=== PATIENT | male | born 1995 | race Caucasian/White ===

== ENCOUNTER 2025-02-25 11:05 | Outpatient (AMB) | payer OTHER, SELFPAY ==
--- NOTE | 2025-02-25 12:28 | AM.OFFWIN_ITS ---
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 - The injury occurred approximately two hours prior to the visit when the patient's left hand was compressed between a tire and a control arm. - The patient reports numbness and tingl ing in the left hand, particularly in the first two fingers. - Has pain with movement. - The patient is right-handed. - He denies wrist pain, arm pain, or ble eding. Physical Exam General: Cooperative, healthy appearing, comfortable, no acute distress and well developed Orientation: Patient oriented x3 Respiratory: Normal respiratory effort and able to speak in complete sentences. Clear to auscultation bilaterally Cardiovascular: Regular rate and rhythm. Normal S1 and S2 Skin: Bruising noted on the left hand and swelling. Neuro: Sensation intact. Extremities: Swelling noted to the left hand. TTP of the left scaphoid, base of the thumb at the MCP, web space of the left thumb and 2nd digit. TTP of the left metacarpal on the 2nd. FROM of the left digits on the left hand. Hand director of diversity and inclusion is intact. Patient was informed and verbally consented to the use of an ambient scribe for clinic note documentation during this visit. [facility] Social History Patient Tobacco Use Status: Never used Tobacco Review of Systems Const All systems reviewed & are unremarkable except as noted in HPI and below Physical Exam Vital Signs: Last Vital Signs Temp 97.8 F 02/25/25 12:30 Pulse 50 02/25/25 12:30 BP 110/70 02/25/25 12:30 Pulse Ox 97 02/25/25 12:30 BMI result Body Mass Index 27.5 Results Reviewed Results Reviewed: reviewed the x-ray in the office Assessment & Plan Assessment & Plan (1) Crush injury of hand: Code(s): S67.20XA - Crushing injury of unspecified hand, initial encounter Qualifiers: Encounter type: initial encounter Laterality: left Qualified Code(s): S67.22XA - Crushing injury of left hand, initial encounter Plan Most likely fracture vs contusion vs abrasion Plan - Obtain an x-ray of the hand to assess for fractures or other injuries. - Rest, ice and elevation - tylenol or motrin as needed for pain. - Apply a splint to the hand regardless of x-ray findings due to the location of pain. - Refer to a hand specialist for further evaluation and management. - Consider follow-up imaging such as a CT scan if initial x-rays are inconclusive. Orders: Orders XR hand LT min 3V Today S67.22XA - Crushing injury of left hand, initial encounter Referrals Orthopedics Referral S67.20XA - Crushing injury of unspecified hand, initial encounter Coding Level of Care Code Est Pt Level 4 (89391) Diagnoses Crushing injury of left hand, initial encounter S67.22XA Encounter type: initial encounter Laterality: left
[2025-02-25 12:30] VITALS: BP 110/70; PULSE 50; TEMP 36.6; O2SAT 97; BMI 27.5
== END 2025-02-25 13:57 | disposition home or self-care (01) ==
PROVIDERS: PCP Internal Medicine; Visit Provider Physician Assistant Medical
DX: S67.22XA Crushing injury of left hand, initial encounter (principal)

== ENCOUNTER 2025-02-25 11:05 | Outpatient (REF) | payer OTHER, SELFPAY ==
--- NOTE | ~2025-02-25 | XR_ITS ---
EXAMINATION: XR HAND, LEFT CLINICAL INFORMATION: S67.22XA - Crushing injury of left hand, initial encounter COMPARISON: None available. TECHNIQUE: PA, lateral, and oblique views of the left hand. FINDINGS: The bones and soft tissues are normal. No fracture. Alignment is anatomic. Joint spaces are maintained. No erosions or soft tissue calcifications. XR/XR hand LT min 3V IMPRESSION: Normal left hand. Electronically signed by: Caden Garza MD 02/25/2025 01:25 PM EDT
== END 2025-02-25 11:06 | disposition home or self-care (01) ==
LOC: HO.HMGCX 11:05
PROVIDERS: PCP Internal Medicine; Visit Provider Physician Assistant Medical
DX: S67.22XA Crushing injury of left hand, initial encounter (principal); W23.0XXA Caught, crushed, jammed, or pinched between moving objects, initial encounter
CPT/HCPCS: 73130; 99212

== ENCOUNTER → 2025-02-25 13:08 | Outpatient (BNV) | payer OTHER, SELFPAY | PROVIDERS: PCP Internal Medicine; Visit Provider Radiology Diagnostic Radiology | DX: S67.22XA Crushing injury of left hand, initial encounter (principal); Z04.2 Encounter for examination and observation following work accident | CPT/HCPCS: 73130 ==

== ENCOUNTER 2025-04-14 13:51 | Outpatient (AMB) | payer OTHER, SELFPAY ==
--- NOTE | 2025-04-14 14:09 | A.OFFVIS_ITS ---
Intake Visit Reasons: Vasectomy Consult Intake Note: patient presents today for: vasectomy consult urology medications: none blood thinners: none kids- 2 Private Investigator Surveillance Required: No Accompanied by: Spouse Allergies No Known Allergies Allergy (Verified 04/14/25 15:53) Medication List - Last Reconciled 04/14/25 by PHI Garcia No Known Home Meds HPI Comments Details: Ntiin is a very pleasant 29-year-old male patient of Dr. Ed Cook. He presents to the office today for vasectomy evaluation. Vasectomy evaluation The patient presents for vasectomy consultation.? He is currently He has fathered 2 children, with a single partner? 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 The vasectomy may be complicated due to a history of no complicating issues. Patient education has been provided via AUA video, via printed information, risks of failure, recovery time, bruising and potential pain syndrome have been stressed Discussion today focused on the presence of vasectomy and the risks, benefits and alternatives that are available. Vasectomy as intended as a permanent form of control. Printed information and literature was provided to the patient. Overall there is a one in 2500 failure rate. This can occur at any time after vasectomy. Risks were discussed highlighting hematoma, spermatocele, epididymal congestion, development of sperm antibodies, and development of chronic pain estimated between 1-5%. The procedure was reviewed in detail. Anatomical diagrams of the male genitalia were used to explain the location of the vas deferens. The vas deferens will be transected, the proximal end will be cauterized, a metal clip would be applied to separate the 2 vas deferens ends. It was explained the procedure will be done in the office and takes approximately 10-15 minutes. Less common problems that arise with vasectomy include hematoma, bleeding, allergic reaction to anesthetic, epididymal infection, epididymal congestion, scrotal discomfort, spermatic leak, spermatic granuloma and the possibility of antisperm antibodies. He understands these risks and wishes to proceed. Consent was signed at the office today. He also understands that it takes 12 weeks for sperm to fully clear the system. He will need to provide a semen sample at 12 weeks and if this is not clear a 2nd sample at 16 weeks. Medical clearance to stop using protection will only be provided if he satisfies published criteria for sperm clearance. PFS Social History Patient Tobacco Use Status: Never used Tobacco Review of Systems Const All systems reviewed & are unremarkable except as noted in HPI and below Physical Exam Const General: cooperative, comfortable, no acute distress, well developed, alert and awake Orientation/consciousness: patient oriented x3 HEENT Head: Yes normal to inspection, Yes normocephalic and Yes atraumatic Ears: hearing grossly normal bilaterally Eyes General: appearance normal, both eyes and all related structures Neck Neck: Yes normal visual inspection and Yes trachea midline Chest Chest palpation & inspection: normal inspection of the chest Resp Effort & Inspection: normal respiratory effort and able to speak in complete sentences Cardio Rate: regular rate GI Inspection: Yes normal to inspection General: Yes no CVA tenderness Male General Exam: Yes normal external exam Penis: normal penis Meatus: meatus normal Scrotum: scrotum normal Testes: Testes normal Back/Spine/Pelvis Back: no CVA tenderness Skin General skin exam: no rashes or lesions noted Neuro General: patient oriented x3 Extrem General: Yes normal to inspection Psych Appearance: grossly normal and well kempt Mental Status: mental status grossly normal Speech and movement: Normal speech and movement present and Clear speech present Affect: normal affect Attitude: cooperative Thought process: Normal thought process present Thought content: Normal thought content present Assessment & Plan Assessment & Plan (1) Vasectomy evaluation: Code(s): Z30.09 - Encounter for other general counseling and advice on contraception Category: Medical (2) Anxiety about health: Code(s): R45.89 - Other symptoms and signs involving emotional state Category: Medical Plan Vasectomy was discussed in detail; risks and benefits; as noted above All questions were answered Prescriptions provided; we discussed importance of bringing medication to office day of procedure We discussed semen analysis in office verses fellows kit. Consent was obtained. Will schedule for vasectomy. Follow-up per doctor's orders; or sooner with any issues, concerns, and or questions. Medications: New diazepam (Valium) Bringing medication to office day of procedure 2 mg PO DAILY 2 tabs 0RF anxiety 1 day R45.89 - Other symptoms and signs involving emotional state tramadol Bringing medication to office day of procedure 50 mg PO Q8H PRN 9 tabs 0RF pain 3 days N43.3 - Hydrocele, unspecified Patient Instructions: The patient had an opportunity to ask questions regarding the treatment plan. All questions were answered. Physical exam, labs, and imaging were discussed and reviewed in detail. As well as risks, benefits, and discussion of treatment choices. No major barriers to understanding were identified. The patient expressed understanding and agreement with the above treatment plan. The patient was made aware they should contact our office by phone for worsening of their current condition, the appearance of new symptoms, or with any questions or concerns. Compliance is encouraged with any medications and follow up testing that is ordered. It is a privilege to be allowed the opportunity to participate in? your urological care.? Again, if you have any questions or concerns If you have any questions or concerns please do not hesitate to contact me. The office is [phone]. This note is constructed using voice recognition software. While every effort has been made to ensure accuracy accounting officer errors may have been included. Yours sincerely, PHI Garcia Coding Level of Care Code New Pt Level 4 (23644) Diagnoses Vasectomy evaluation Z30.09 Anxiety about health R45.89
== END 2025-04-14 14:57 | disposition home or self-care (01) ==
LOC: HO.HUSH 13:52
PROVIDERS: PCP Internal Medicine; Visit Provider Nurse Practitioner Family
DX: Z30.09 Encounter for other general counseling and advice on contraception (principal); R45.89 Other symptoms and signs involving emotional state
CPT/HCPCS: 99204

== ENCOUNTER 2025-04-15 14:50 | Outpatient (AMB) | payer OTHER, SELFPAY ==
--- NOTE | 2025-04-15 15:02 | A.OFFVIS_ITS ---
Intake Visit Reasons: VASECTOMY Intake Note: patient presents today for: vasectomy urology medications: none blood thinners: none kids- 2 Continuous Improvement Black Belt Required: No Accompanied by: Spouse Allergies No Known Allergies Allergy (Verified 04/15/25 15:03) [facility] Social History Patient Tobacco Use Status: Never used Tobacco Office Procedures Vasectomy 58869 - Vasectomy Office Meds lidocaine (PF) 10 mg/mL (1 %) injection solution Performing Provider: Rich Baltazar MD [facility] Administered by: Aileen Chase RN on 04/15/25 15:13 Dose Route Admin Location Dispensed Lot Number Expiration Date NDC Director Translational 2 mL Infiltration 10 mL Total Dispensed Waste 10 mL 0 % Assessment & Plan Assessment & Plan Orders: Orders AMB Vasectomy Today R45.89 - Other symptoms and signs involving emotional state Coding CPT Codes Office Procedure - CPT: 28082 - Vasectomy ([id number])
== END 2025-04-15 15:59 | disposition home or self-care (01) ==
LOC: HO.HUSH 14:51
PROVIDERS: PCP Internal Medicine; Visit Provider Urology
DX: Z30.2 Encounter for sterilization (principal); R45.89 Other symptoms and signs involving emotional state
CPT/HCPCS: 55250

== ENCOUNTER → 2025-04-15 14:50 | Outpatient (BNVA) | payer OTHER, SELFPAY | PROVIDERS: PCP Internal Medicine; Visit Provider Urology | DX: Z30.2 Encounter for sterilization (principal); R45.89 Other symptoms and signs involving emotional state | CPT/HCPCS: 55250; J2003 ==

== ENCOUNTER 2025-04-22 13:15 | Outpatient (AMB) | payer OTHER, SELFPAY ==
--- NOTE | 2025-04-22 13:20 | A.OFFVIS_ITS ---
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 Ed Cook. He presents to the office today for - anxiety about health Has concerns about swelling post vasectomy Area reviewed Minimal swelling. Vasectomy evaluation The patient presents for vasectomy consultation.? He is currently He has fathered 2 children, with a single partner? 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 [employer] Social History Patient Tobacco Use Status: Never used Tobacco Review of Systems Const Denies chills and Denies fever(s) Card Reports no additional complaints and Denies syncope Resp Denies cough GI Denies abdominal pain and Denies heartburn Reports as per HPI and Denies change in libido Neuro Denies syncope Psych Denies change in libido Endo Denies change in libido Physical Exam Const General: cooperative, healthy appearing, comfortable and no acute distress Orientation/consciousness: patient oriented x3 HEENT Face and sinus: Yes normal facial exam Mouth: moist mucous membranes Neck Neck: Yes normal visual inspection, Yes full ROM and Yes trachea midline Chest Chest palpation & inspection: normal inspection of the chest Resp Effort & Inspection: normal respiratory effort, able to speak in complete sentences and no respiratory distress GI Inspection: Yes normal to inspection Back/Spine/Pelvis Cervical Spine: normal cervical lordosis Thoracic/Lumbar Spine: thoracic and lumbar spine normal to inspection Skin General skin exam: no rashes or lesions noted Neuro General: patient oriented x3, gait normal, tone normal and moves all extremities Extrem General: Yes normal to inspection and Yes capillary refill normal Assessment & Plan Assessment & Plan (1) Incisional pain: Code(s): L76.82 - Other postprocedural complications of skin and subcutaneous tissue Category: Medical Plan Keep follow-up Patient Instructions: This note is constructed using voice recognition software. While every effort has been made to ensure accuracy compositor apprentice errors may have been included. Imaging studies, laboratory and physical exam results were discussed and reviewed in detail. No major barriers to patient understanding were identified. An opportunity to ask questions regarding the treatment plan was provided. All questions were answered. The patient expressed understanding and agreement with the above treatment plan. The patient is aware they should contact our office by phone for worsening of their current condition or the appearance of new urologic symptoms. Compliance is encouraged with any medications and followup testing that is ordered. It is a privilege to participate in the urologic care of your patient. If you have any questions or concerns regarding treatment for the above conditions, or other urologic issues, please do not hesitate to contact me. The office telephone contact is [phone]. Sincerely, Dr Rich Baltazar MD, [facility] - Urology Compassionate Specialist Care for the Genitourinary System Coding Level of Care Code Global (31857) Diagnoses Incisional pain L76.82
== END 2025-04-22 13:49 | disposition home or self-care (01) ==
LOC: HO.HUSH 13:15
PROVIDERS: PCP Internal Medicine; Visit Provider Urology
DX: L76.82 Other postprocedural complications of skin and subcutaneous tissue (principal)
CPT/HCPCS: 99024

== ENCOUNTER 2025-06-13 14:02 | Outpatient (AMB) | payer OTHER, SELFPAY ==
--- NOTE | 2025-06-13 14:15 | A.OFFPC_ITS ---
Vital Signs 06/13/25 14:16 Height 6 ft 2 in Weight 223 lb 4 oz BMI 28.7 BP 122/82 Blood Pressure Location Rt brachial Position Sitting Respiration 14 Pulse 61 Pulse Source Pulse Oximeter Temp 98.1 F Temp Source Oral Pulse Oximetry (%) 97 Oxygen Delivery Method Room Air Intake Visit Reasons: CPE Allergies No Known Allergies Allergy (Verified 06/13/25 14:18) Tobacco use date assessed: 06/13/25 Dental Screening Dental Screen Date: 06/13/25 Did you have a dental visit in the last 12 months?: No Did you have a dental problem in the last 6 months where you did not have access to dental care?: No Was dental information given to patient?: Patient has dentist HPI HPI Comments History of Present Illness Details The patient is a 29 year old male with past medical history of salivary gland tumor 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 No follow up was recommended. Seen in urgent care in January for injury to hand. Was seen by orthopedics-had MRI there was fracture. He had to soft splint it for some time. Feeling fairly good. Following with urology -s/p vasectomy Mar. Follow up in Jun. for testing Dental UTD Tdap today Received 2024 flu ROS CONSTITUTIONAL: Denies weight loss, fever and chills. HEENT: Denies changes in vision and hearing. RESPIRATORY: Denies SOB and cough. CV: Denies palpitations and CP GI: Denies abdominal pain, nausea, vomiting and diarrhea. : Denies dysuria and urinary frequency. MSK: Denies new myalgia and joint pain. SKIN: Denies rash and pruritus. NEUROLOGICAL: Denies headache PSYCHIATRIC: Denies recent changes in mood. PHYSICAL EXAM: GENERAL: Alert and oriented x 3. NAD EYES: EOMI. Anicteric. HENT: Moist mucous membranes. No scleral icterus. No cervical lymphadenopathy. LUNGS: Clear to auscultation bilaterally. CARDIOVASCULAR: Regular rate and rhythm. No murmur. No JVD. ABDOMEN: Soft, non-tender +bs EXTREMITIES: No edema. Non-tender. SKIN: No rashes or lesions. Warm. NEUROLOGIC: No focal neurological deficits. CN II-XII grossly intact PSYCHIATRIC: Cooperative. Appropriate mood and affect [facility] Social History (Updated 06/13/25 @ 14:23 by OKSANA Vigil Housing: House Alcohol intake: current Patient Tobacco Use Status: Never used Tobacco e-Cigarette/Vaping Use: Never Used Second Hand Smoke Exposure: Yes service: No Current occupational status: employed Current occupation: [employer] Current occupational exposures/hazards: Yes Cognitive needs: No Hearing needs: No Vision needs: No Questionnaire PHQ-9 Over the last 2 weeks, how often have you been bothered by any of the following problems? 1. Little interest or pleasure in doing things: not at all 2. Feeling down, depressed, or hopeless: not at all 3. Trouble falling or staying asleep, or sleeping too much: not at all 4. Feeling tired or having little energy: not at all 5. Poor appetite or overeating: not at all 6. Feeling bad about yourself - or that you are a failure or have let yourself or your family down: not at all 7. Trouble concentrating on things, such as reading the newspaper or watching television: not at all 8. Moving or speaking so slowly that other people could have noticed. Or the opposite - being so fidgety or restless that you have been moving around a lot more than usual: not at all 9. Thoughts that you would be better off or of hurting yourself in some way: not at all Total score: 0 Depression Screening Interpretation: Negative Depression Screening Done: Yes 30000 - PHQ-9 Billing: Yes Source: Developed by Drs. Gael Bazan, Sil Marquez, Marcus Hackett and colleagues, with an educational john from [employer]. Thrive Questionnaire Date Thrive assessed: 06/06/25 I am a: Patient What is your living situation today?: I have a steady place to live Within the past 12 months, did the food you bought not last and you didn't have the money to get more?: Never true Within the past 12 months, did you worry whether your food would run out before you got money to buy more?: Never true Do you have trouble paying for medicines?: No Do you have trouble getting transportation to medical appointments?: No Do you have trouble paying your heating and electricity bill?: No Do you have trouble taking care of your child, family member or friend?: No Do you have trouble with day-to-day activities such as bathing, preparing meals, shopping, managing finances, etc.?: No Are you currently unemployed and looking for a job?: No Are you interested in more education?: No Please select the resources that you would like help with: None Currently or been in a relationship where the following occur: No concerns reported THRIVE Score: 0 AUDIT C Alcohol Use Questionnaire (AUDIT-C) 1. How often do you have a drink containing alcohol?: Monthly or less 2. How many drinks containing alcohol do you have on a typical day when you are drinking?: 1 or 2 3. How often do you have six or more drinks on one occasion?: Never Total Score: 1 ORLANDO-7 AMB Questionnaire ORLANOD-7 Date ORLANDO - 7 assessed: 06/13/25 Feeling nervous, anxious, or on edge: 0 = Not at all Not being able to stop or control worryin = Not at all Worrying too much about different things: 0 = Not at all Trouble relaxin = Not at all Being so restless that it is hard to sit still: 0 = Not at all Becoming easily annoyed or irritable: 0 = Not at all Feeling afraid as if something awful might happen: 0 = Not at all Total ORLANDO-7 score (0-4 normal; 5-9 mild; 10-14 moderate; 15-21 severe): 0 Source: Developed by Drs. Gael Bazan, Sil Marquez, Marcus Hackett and colleagues, with an educational john from [employer]. ORLANDO-7 Assessment Billing ORLANDO-7 Assessment Tool: ORLANDO-7 Assessment 43961 Physical exam (Primary Care) Vital Signs: Last Vital Signs Temp 98.1 F 06/13/25 14:16 Pulse 61 06/13/25 14:16 Resp 14 06/13/25 14:16 BP 122/82 06/13/25 14:16 Pulse Ox 97 06/13/25 14:16 Oxygen Delivery Method Room Air 06/13/25 14:16 BMI result Body Mass Index 28.7 Tobacco/Smoking Status: Tobacco use Status Tobacco use date assessed 06/13/25 06/13/25 14:23 Patient Tobacco Use Status Never used Tobacco 06/13/25 14:23 e-Cigarette/Vaping Use Never Used 06/13/25 14:23 PHQ-9: PHQ-9 Score PHQ-9: Total score 0 06/13/25 17:01 Depression Screening Interpretation: Negative Thrive Assessment: Date of Thrive Assessment Date Thrive assessed 06/06/25 06/13/25 14:23 Currently or been in a relationship where the following occur: No concerns reported Office Procedures Flu Questionnaire Does the patient have a severe egg allergy?: No Does the patient have severe life threatening allergies?: No Does the patient have a fever or illness today?: No Has the patient ever had Guillain-Ogden Syndrome?: No Has the patient ever had any past reaction to a flu shot?: No Immunizations Fluarix [id number] (PF) 45 mcg (15 mcg x 3)/0.5 mL IM syringe Performing Provider: Oralia Chen MD Performing Location[place] [facility] Administered by: Uyen Busch CMA on 06/13/25 16:59 Dose Route Admin Location Dispensed Lot Number Expiration Date [employer] 0.5 mL IM Left Deltoid 0.5 mL [id number] 01/27/26 [id number] [employer] VIS Given Date VIS Provided VIS Publication Date 06/13/25 Single Vaccine 24 Eligibility Eligibility Date Funding Source Not [facility] Eligible 06/13/25 Private Coding Level of Care Code New Pt Prev Care 18-39yr(81233 Diagnoses Physical exam Z00.00 Additional Codes ORLANDO-7 Assessment Billing - ORLANDO-7 Assessment Tool: ORLANDO-7 Assessment 35370 ([id number]) PHQ-9 - 06622 - PHQ-9 Billing: Yes ([id number]) Assessment & Plan Assessment & Plan (1) Physical exam: Code(s): Z00.00 - Encounter for general adult medical examination without abnormal findings Plan 29 year old to establish/CPE Past medical, surgical, social reviewed Preventive measures for age discussed Follow up with urology as planned Labs ordered. Orders: Orders Comprehensive Met. Panel Today R53.83 - Other fatigue, Z13.0 - Encounter for screening for diseases of the blood and blood-forming organs and certain dis orders involving the immune mechanism, Z13.220 - Encounter for screening for lipoid disorders, Z13.228 - Encounter for screening for other metabolic disorders Hemoglobin A1c Today R53.83 - Other fatigue, Z13.0 - Encounter for screening for diseases of the blood and blood-forming organs and certain disorders involving the immune mechanism, Z13.220 - Encounter for screening for lipoid disorders, Z13.228 - Encounter for screening for other metabolic disorders Complete Blood Count Auto Diff Today R53.83 - Other fatigue, Z13.0 - Encounter for screening for diseases of the blood and blood-forming organs and certain disorders involving the immune mechanism, Z13.220 - Encounter for screening for lipoid disorders, Z13.228 - Encounter for screening for other metabolic disorders Influenza [id number] Immunization Today Z23 - Encounter for immunization Lipid Panel Today R53.83 - Other fatigue, Z13.0 - Encounter for screening for diseases of the blood and blood-forming organs and certain disorders involving the immune mechanism, Z13.220 - Encounter for screening for lipoid disorders, Z13.228 - Encounter for screening for other metabolic disorders TSH reflex Free T4 Today R53.83 - Other fatigue, Z13.0 - Encounter for screening for diseases of the blood and blood-forming organs and certain disorders involving the immune mechanism, Z13.220 - Encounter for screening for lipoid disorders, Z13.228 - Encounter for screening for other metabolic disorders
[2025-06-13 14:16] VITALS: BP 122/82; PULSE 61; RESP 14; TEMP 36.7; O2SAT 97; BMI 28.7
== END 2025-06-13 14:49 | disposition home or self-care (01) ==
LOC: HO.HMCFM 14:02
PROVIDERS: PCP Internal Medicine; Visit Provider Internal Medicine
DX: Z23 Encounter for immunization (principal)

== ENCOUNTER 2025-06-13 14:02 | Outpatient (REF) | payer OTHER, SELFPAY ==
[2025-06-13 18:20] LABS: MANUAL DIFF FLAG NO
[2025-06-13 18:37] LABS: Hematocrit 43.0 % (42.0-52.0); Hemoglobin 15.3 g/dl (14.0-18.0); Imm Gran Abs Auto 0.01 X10*3/uL (0.00-0.03); Imm Gran Pct Auto 0.2 % (0.0-0.4); Lymphocytes Absolute Auto 1.6 X10*3/uL (1.2-4.9); Mean Corpuscular HGB Conc 35.6 g/dl (31.0-36.0); Mean Corpuscular Hemoglobin 30.1 pg (27.0-33.0); Mean Corpuscular Volume 84.6 fL (80.0-98.0); NRBC Abs Auto 0.000 X10*3/uL (0.0-0.012); NRBC Pct Auto 0.0 /100WBC (0.0-0.2); Platelet Count 248 X10*3/uL (160-400); Red Blood Count 5.08 X10*6/uL (4.60-5.80); White Blood Count 5.5 X10*3/uL (4.8-10.8)
[2025-06-13 18:54] LABS: Alanine Aminotransferase 33 U/L (0-40); Albumin Level 4.8 g/dL (3.5-5.0); Alkaline Phosphatase 65 U/L (39-117); Anion Gap 10 (12-20); Aspartate Amino Transferase 35 U/L (5-37); Blood Urea Nitrogen 16 mg/dL (9-16); Calcium 9.6 mg/dL (8.4-10.2); Carbon Dioxide 27 mmol/L (22-29); Chloride 107 mmol/L (96-108); Cholesterol 153 mg/dL (<200); Estimated Glomerular Filt Rate > 60; HDL Cholesterol 30 mg/dL (>40); Potassium 4.0 mmol/L (3.3-5.1); Sodium 140 mmol/L (135-145); Total Protein 7.7 g/dL (6.5-8.0); Triglycerides 128 mg/dL (<150)
== END 2025-06-13 14:03 | disposition home or self-care (01) ==
LOC: HO.WFDLDS 14:02
PROVIDERS: PCP Internal Medicine; Visit Provider Internal Medicine
DX: Z00.00 Encounter for general adult medical examination without abnormal findings (principal); R53.83 Other fatigue; Z13.0 Encounter for screening for diseases of the blood and blood-forming organs and certain disorders involving the immune mechanism; Z13.228 Encounter for screening for other metabolic disorders; Z13.220 Encounter for screening for lipoid disorders; Z23 Encounter for immunization; Z13.1 Encounter for screening for diabetes mellitus
CPT/HCPCS: 36415; 80053; 80061; 83036; 84443; 85025; 90471; 90472; 90656; 90715; 96127

== ENCOUNTER 2025-07-15 15:26 | Outpatient (AMB) | payer OTHER, SELFPAY ==
--- NOTE | 2025-07-15 15:40 | A.OFFVIS_ITS ---
Intake Visit Reasons: Semen analysis SET NO UA Intake Note: Reason for Visit: Semen Analysis Urology Medication:None Blood Thinners: None Imaging: None Labs: None Last PVR: None Coater Smoking Pipe Required: No Accompanied by: Self / Same As Patient Allergies No Known Allergies Allergy (Verified 07/15/25 15:40) HPI Comments Details: Nitin is a very pleasant 29-year-old male patient of Dr. Ed Cook. He presents to the office today for - anxiety about health Postprocedure No sperm seen per high-powered field examination P.r.n. follow-up Vasectomy evaluation The patient presents for vasectomy consultation.? He is currently He has fathered 2 children, with a single partner? 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 [employer] Surgical History (Updated 07/15/25 @ 15:41 by MARYLOU Domínguez) History of vasectomy Social History Housing: House Alcohol intake: current Patient Tobacco Use Status: Never used Tobacco e-Cigarette/Vaping Use: Never Used Second Hand Smoke Exposure: Yes service: No Current occupational status: employed Current occupation: [employer] Current occupational exposures/hazards: Yes Cognitive needs: No Hearing needs: No Vision needs: No Review of Systems Const Denies chills and Denies fever(s) Card Reports no additional complaints and Denies syncope Resp Denies cough GI Denies abdominal pain and Denies heartburn Reports as per HPI and Denies change in libido Neuro Denies syncope Psych Denies change in libido Endo Denies change in libido Physical Exam Const General: cooperative, healthy appearing, comfortable and no acute distress Orientation/consciousness: patient oriented x3 HEENT Face and sinus: Yes normal facial exam Mouth: moist mucous membranes Neck Neck: Yes normal visual inspection, Yes full ROM and Yes trachea midline Chest Chest palpation & inspection: normal inspection of the chest Resp Effort & Inspection: normal respiratory effort, able to speak in complete sentences and no respiratory distress GI Inspection: Yes normal to inspection Back/Spine/Pelvis Cervical Spine: normal cervical lordosis Thoracic/Lumbar Spine: thoracic and lumbar spine normal to inspection Skin General skin exam: no rashes or lesions noted Neuro General: patient oriented x3, gait normal, tone normal and moves all extremities Extrem General: Yes normal to inspection and Yes capillary refill normal Assessment & Plan Assessment & Plan (1) Anxiety about health: Code(s): R45.89 - Other symptoms and signs involving emotional state Category: Medical Plan P.r.n. Patient Instructions: This note is constructed using voice recognition software. While every effort has been made to ensure accuracy cotton broker errors may have been included. Imaging studies, laboratory and physical exam results were discussed and reviewed in detail. No major barriers to patient understanding were identified. An opportunity to ask questions regarding the treatment plan was provided. All questions were answered. The patient expressed understanding and agreement with the above treatment plan. The patient is aware they should contact our office by phone for worsening of their current condition or the appearance of new urologic symptoms. Compliance is encouraged with any medications and followup testing that is ordered. It is a privilege to participate in the urologic care of your patient. If you have any questions or concerns regarding treatment for the above conditions, or other urologic issues, please do not hesitate to contact me. The office telephone contact is [phone]. Sincerely, Dr Rich Baltazar MD, [facility] - Urology Compassionate Specialist Care for the Genitourinary System Coding Level of Care Code Est Pt Level 3 (75827) Diagnoses Anxiety about health R45.89
== END 2025-07-15 16:21 | disposition home or self-care (01) ==
LOC: HO.HUSH 15:27
PROVIDERS: PCP Internal Medicine; Visit Provider Urology
DX: R45.89 Other symptoms and signs involving emotional state (principal)
CPT/HCPCS: 99213